=== PATIENT | female | born 1950 | race Hispanic/Latino ===

== ENCOUNTER 2017-01-03 05:26 | Day surgery (SDC) | payer OTHER ==
[~2017-01-03] VITALS: Ht 157.5 cm; Wt 66.2 kg
[~2017-01-03 05:26] MED LIST: AMLODIPINE BESYL5 MG PO; Ativan PO; DIOVAN40 MG PO; DIOVAN80 MG PO; KLONOPIN0.125 MG PO; LISINOPRIL10 MG PO; Lipitor PO; NOHOMEMEDS; SEROquel PO
[2017-01-03 05:51] VITALS: BP 134/86
[2017-01-03] MEDS ORDERED: COLACE100 MG PO (08:47)
[2017-01-03] MEDS ORDERED: PERCOCET 5/31 TABLET PO (08:47)
[2017-01-03 09:50] VITALS: BP 126/77
== END 2017-01-03 10:20 | disposition home or self-care (01) ==
LOC: SDC 05:26
DX: D17.1 Benign lipomatous neoplasm of skin and subcutaneous tissue of trunk (principal); I10 Essential (primary) hypertension; E78.5 Hyperlipidemia, unspecified; E66.3 Overweight; Z68.27 Body mass index [BMI] 27.0-27.9, adult; M51.26 Other intervertebral disc displacement, lumbar region; G47.30 Sleep apnea, unspecified; K21.9 Gastro-esophageal reflux disease without esophagitis; F41.8 Other specified anxiety disorders
CPT/HCPCS: 88304; J0131; J0690; J1100; J2250; J2405; J3010

== ENCOUNTER 2017-05-03 11:14 | Emergency (ER) | payer OTHER ==
[~2017-05-03] VITALS: Ht 160 cm; Wt 68.9 kg
[~2017-05-03 11:14] MED LIST changes: +COLACE100 MG PO; +PERCOCET 5/31 TABLET PO
[2017-05-03 12:06] LABS: BASOPHIL (%) 0.4 % (0-1); EOSINOPHIL (%) 2.6 % (0-5); EOSINOPHIL COUNT 0.1 K/uL (0-0.3); HEMATOCRIT 35.3 % (36.0-46.0); HEMOGLOBIN 12.5 G/DL (11.9-15.5); IMMATURE GRANULOCYTE (%) 0.2 % (0.0-0.7); LYMPHOCYTE (%) 22.8 % (15-42); LYMPHOCYTE COUNT 1.1 K/uL (1.0-2.8); MCH 29.8 PG (29.0-34.0); MCHC 35.4 G/DL (30.0-36.0); MONOCYTE (%) 8.9 % (3-12); MONOCYTE COUNT 0.4 K/uL (0-0.8); NEUTROPHIL (%) 65.1 % (45-76); NEUTROPHIL COUNT 3.2 K/uL (1.8-6.4); PLATELET COUNT 208 K/uL (156-360); RBC DIS.WIDTH-CV 12.1 % (11.8-14.6); RBC DIS.WIDTH-SD 36.7 % (39-53)
[2017-05-03 12:14] LABS: ALBUMIN 3.8 g/dL (3.2-4.8)
[2017-05-03 12:15] LABS: CHLORIDE 102 mEq/L (99-109); POTASSIUM 2.9 mEq/L (3.7-5.4); SODIUM 139 mEq/L (136-147)
[2017-05-03 12:17] LABS: GLUCOSE 119 mg/dL (70-99); TOTAL PROTEIN 6.3 g/dL (6.4-8.3)
[2017-05-03 12:19] LABS: TOTAL BILIRUBIN 0.4 mg/dL (0.0-1.0)
[2017-05-03 12:20] LABS: ALKALINE PHOSPHATASE 41 IU/L (3-129)
[2017-05-03 12:21] LABS: CREATININE 0.8 mg/dL (0.6-1.3); GFR ESTIMATE (CALCULATED) > 59 mL/min/
[2017-05-03 12:22] LABS: AST (GOT) 20 IU/L (2-34); UREA NITROGEN (BUN) 12 mg/dL (9-23)
[2017-05-03 12:24] LABS: ALT (GPT) 31 IU/L (3-49); LIPASE 11 U/L (1.0-51.0)
[2017-05-03 12:27] LABS: TROP-I INTERPRETATION NEGATIVE; TROPONIN-I < 0.01 ng/mL (0.0-0.30)
[2017-05-03 13:29] LABS: APPEARANCE SL.HAZY ((CLEAR)); BILIRUBIN NEGATIVE; BLOOD NEGATIVE; GLUCOSE (STRIP) NEGATIVE; KETONES NEGATIVE; LEUKOCYTES NEGATIVE; NITRITE NEGATIVE; PROTEIN (STRIP) NEGATIVE; SPECIFIC GRAVITY 1.012 (1.000-1.030); UROBILINOGEN 0.2 MG/DL (0.2-1.0)
[2017-05-03 13:30] LABS: COLOR YELLOW ((YELLOW))
[2017-05-03] MEDS ORDERED: ZOFRAN ODT4 MG PO (13:34)
[2017-05-03 13:37] LABS: BACTERIA NONE SEEN /HPF; EPITHELIAL CELLS RARE /HPF; HYALINE CASTS 0-5 /LPF; MUCUS TRACE /LPF; RED BLOOD CELLS 0-5 /HPF (0-5); UCUL ADDED? NO; WHITE BLOOD CELLS 0-5 /HPF (0-5)
[2017-05-03 14:08] VITALS: BP 116/76
== END 2017-05-03 14:08 | disposition home or self-care (01) ==
LOC: EME 11:14
PROVIDERS: Emergency Medicine
DX: R10.13 Epigastric pain (principal); R55 Syncope and collapse; E87.6 Hypokalemia; K76.89 Other specified diseases of liver; K21.9 Gastro-esophageal reflux disease without esophagitis; J45.909 Unspecified asthma, uncomplicated; F32.9 Major depressive disorder, single episode, unspecified; F41.9 Anxiety disorder, unspecified; Z87.891 Personal history of nicotine dependence
CPT/HCPCS: 76705; 80053; 81003; 83605; 83690; 84484; 85025; 93005; 99281; 99285; J2405; J7030